=== PATIENT | female | born 1955 | race Caucasian/White ===

== ENCOUNTER → 2016-06-09 | Outpatient (CLI) | payer MEDICARE ==
[~2016-06-09] MED LIST: ASPIR 8181 MG PO; BUSPIRONE HCL5 MG PO; BUTALB-ACETAMI1 EACH PO; CALTRATE 600 +1 EAC1 PO; CLARITIN 10MG T10 MG PO; CYMBALTA30 MG PO; DOXYCYCLINE MO100 MG PO; ESTRADIOL0.5 MG PO; ISOSORBIDE DINI30 MG PO; LEVOXYL125 MCG PO; LORTAB 7.5-3251 EACH PO; MEDROXYPROGEST2.5 MG PO; METOPROLOL TART25 MG PO; NEURONTIN 300300 MG PO; NOVOLOG 10100 UNITS/ INJ; NOVOLOG 10100 UNITS1 INJ; PLAVIX75 MG PO; PRAVASTATIN SOD40 MG PO; PRINIVIL10 MG PO; PROTONIX40 MG PO; ROBAXIN500 MG PO; SARAFEM10 MG PO; VENTOLIN/PROVE0.5 ML INH; VISTARIL25 MG PO; VITAMIN D5000 UNIT PO
== END ==
LOC: HEART 5 11:00
DX: I73.9 Peripheral vascular disease, unspecified (principal)

== ENCOUNTER → 2020-05-17 | Outpatient (CLI) | payer OTHER | LOC: EXRD 12:54 | DX: H81.10 Benign paroxysmal vertigo, unspecified ear (principal); I70.203 Unspecified atherosclerosis of native arteries of extremities, bilateral legs | CPT/HCPCS: 93925 ==